=== PATIENT | female | born 2000 | race Caucasian/White ===

== ENCOUNTER 2022-10-14 20:38 | Day surgery (SDC) | payer BC, OTHER ==
[~2022-10-14] VITALS: Ht 168 cm; Wt 76.7 kg
[2022-10-14] MEDS ORDERED: SUCR1TAB (20:56)
[2022-10-14 21:03] LABS: BILIRUBIN,URINE NEGATIVE (NEGATIVE); CLARITY,URINE CLEAR; COLOR,URINE YELLOW; GLUCOSE, URINE (UA) NEGATIVE (NEGATIVE); KETONES,URINE NEGATIVE (NEGATIVE); LEUKOCYTE ESTERASE ,URINE 1+ (NEGATIVE); NITRITE,URINE NEGATIVE (NEGATIVE); PROTEIN,URINE NEGATIVE (NEGATIVE)
[2022-10-14 21:10] LABS: BACTERIA,URINE FEW /HPF; RBC,URINE 0-2 /HPF
[2022-10-14 21:26] LABS: BASOPHILS # (AUTO) 0.1 10^3/uL (0.0-0.1); BASOPHILS % (AUTO) 0 % (0-10); EOSINOPHILS # (AUTO) 0.2 10^3/uL (0.0-0.3); EOSINOPHILS % (AUTO) 1 % (0-10); HEMATOCRIT 40 % (35-52); HEMOGLOBIN 13.4 g/dL (11.5-16.0); LYMPHOCYTES % (AUTO) 23 % (12-44); MEAN CORPUSCULAR HEMOGLOBIN 28 pg (25-34); MEAN CORPUSCULAR HGB CONC 33 g/dL (32-36); MEAN CORPUSCULAR VOLUME 84 fL (80-99); MEAN PLATELET VOLUME 10.3 fL (9.0-12.2); MONOCYTES # (AUTO) 0.9 10^3/uL (0.0-1.0); MONOCYTES % (AUTO) 7 % (0-12); NEUTROPHILS # (AUTO) 8.8 10^3/uL (1.8-7.8); NEUTROPHILS % (AUTO) 68 % (42-75); PLATELET COUNT 265 10^3/uL (130-400); WHITE BLOOD COUNT 12.8 10^3/uL (4.3-11.0)
--- NOTE | 2022-10-14 21:34 | ED Abdominal Pain ---
General Chief Complaint: Abdominal/GI Problems Stated Complaint: ABDOMINAL PAIN Nursing Triage Note: worsening right lower quadrent pain since noon Source of Information: Patient Exam Limitations: No Limitations (VITOR VALDEZ APRN) History of Present Illness Date Seen by Provider: Oct 14, 2022 Time Seen by Provider: 22:20 Initial Comments Patient is a 22-year-old female who presents to the emergency department with acute onset of right lower quadrant pain at approximately 1 PM this afternoon. Denies any increased nausea above her baseline. Also denies any diarrhea. No fever. No abdominal trauma in the recent past. Patient states the car ride over made the pain worse when she hit bumps. No history of abdominal surgery. LMP was approximately 1 month ago. (VITOR VALDEZ APRN) Allergies and Home Medications Allergies Coded Allergies: ibuprofen (Verified Allergy, Unknown, 10/14/22) Patient Home Medication List Home Medication List Reviewed: Yes (VITOR VALDEZ APRN) Sucralfate (Sucralfate) 1 Gram Tablet, (Reported) Entered as Reported by: MICHAEL CROFT on 10/14/222055 Last Action: New Order Review of Systems Review of Systems Constitutional: no symptoms reported EENTM: No Symptoms Reported Respiratory: No Symptoms Reported Cardiovascular: No Symptoms Reported Gastrointestinal: No Symptoms Reported Genitourinary: No Symptoms Reported Musculoskeletal: no symptoms reported Skin: no symptoms reported Psychiatric/Neurological: No Symptoms Reported Endocrine: No Symptoms Reported Hematologic/Lymphatic: No Symptoms Reported (VITOR VALDEZ APRN) Past Azueetp-Wjgnqn-Shgigu Hx Patient Social History Tobacco Use?: Yes Substance use?: No Alcohol Use?: Yes Pt feels they are or have been: No (VITOR VALDEZ APRN) Immunizations Up To Date First/Initial COVID19 Vaccinat: x2 (VITOR VALDEZ APRN) Past Medical History Surgery/Hospitalization HX: fibromyalgia, gerd, partial garstic paralysis Last Menstrual Period: Sep 14, 2022 (VITOR VALDEZ APRN) Physical Exam Vital Signs Vital Signs - First Documented 10/14/22 20:50 Temp 36.9 Pulse 123 Resp 20 B/P (MAP) 135/86 (102) Pulse Ox 100 O2 Delivery Room Air (SIN VALLES MD) Vital Signs Capillary Refill : Less Than 3 Seconds (VALDEZ,VITOR CHECK OUT CLERK) Height/Weight/BMI Height: '" Weight: lbs. oz. kg; 27.00 BMI Method: General Appearance: WD/WN, no apparent distress HEENT: PERRL/EOMI, normal ENT inspection, TMs normal, pharynx normal Neck: non-tender, full range of motion, supple, normal inspection Respiratory: chest non-tender, lungs clear, normal breath sounds, no respiratory distress, no accessory muscle use Cardiovascular: regular rate, rhythm Gastrointestinal: normal bowel sounds, soft, no organomegaly, no pulsatile mass, tenderness Extremities: normal range of motion, non-tender, normal inspection, no pedal edema, no calf tenderness Neurologic/Psychiatric: no motor/sensory deficits, alert, normal mood/affect, oriented x 3 Skin: normal color, warm/dry (VITOR VALDEZ APRN) Progress/Results/Core Measures Results/Orders Lab Results Laboratory Tests Test 10/14/22 20:57 10/14/22 21:18 Range/Units Urine Color YELLOW Urine Clarity CLEAR Urine pH 6.0 5-9 Urine Specific [place] 1.025 H 1.016-1.022 Urine Protein NEGATIVE NEGATIVE Urine Glucose (UA) NEGATIVE NEGATIVE Urine Ketones NEGATIVE NEGATIVE Urine Nitrite NEGATIVE NEGATIVE Urine Bilirubin NEGATIVE NEGATIVE Urine Urobilinogen 0.2 < = 1.0 MG/DL Urine Leukocyte Esterase 1+ H NEGATIVE Urine RBC (Auto) NEGATIVE NEGATIVE Urine RBC 0-2 /HPF Urine WBC 2-5 /HPF Urine Squamous Epithelial Cells 2-5 /HPF Urine Crystals NONE /LPF Urine Bacteria FEW H /HPF Urine Casts NONE /LPF Urine Mucus NEGATIVE /LPF Urine Culture Indicated YES White Blood Count 12.8 H 4.3-11.0 10^3/uL Red Blood Count 4.83 3.80-5.11 10^6/uL Hemoglobin 13.4 11.5-16.0 g/dL Hematocrit 40 35-52 % Mean Corpuscular Volume 84 80-99 fL Mean Corpuscular Hemoglobin 28 25-34 pg Mean Corpuscular Hemoglobin Concent 33 32-36 g/dL Red Cell Distribution Width 12.6 10.0-14.5 % Platelet Count 265 130-400 10^3/uL Mean Platelet Volume 10.3 9.0-12.2 fL Immature Granulocyte % (Auto) 0 % Neutrophils (%) (Auto) 68 42-75 % Lymphocytes (%) (Auto) 23 12-44 % Monocytes (%) (Auto) 7 0-12 % Eosinophils (%) (Auto) 1 0-10 % Basophils (%) (Auto) 0 0-10 % Neutrophils # (Auto) 8.8 H 1.8-7.8 10^3/uL Lymphocytes # (Auto) 3.0 1.0-4.0 10^3/uL Monocytes # (Auto) 0.9 0.0-1.0 10^3/uL Eosinophils # (Auto) 0.2 0.0-0.3 10^3/uL Basophils # (Auto) 0.1 0.0-0.1 10^3/uL Immature Granulocyte # (Auto) 0.0 0.0-0.1 10^3/uL Sodium Level 139 135-145 MMOL/L Potassium Level 3.4 L 3.6-5.0 MMOL/L Chloride Level 105 98-107 MMOL/L Carbon Dioxide Level 22 21-32 MMOL/L Anion Gap 12 5-14 MMOL/L Blood Urea Nitrogen 10 7-18 MG/DL Creatinine 0.81 0.60-1.30 MG/DL Estimat Glomerular Filtration Rate 106 BUN/Creatinine Ratio 12 Glucose Level 95 70-105 MG/DL Calcium Level 9.6 8.5-10.1 MG/DL Corrected Calcium 9.3 8.5-10.1 MG/DL Total Bilirubin 0.2 0.1-1.0 MG/DL Aspartate Amino Transf (AST/SGOT) 14 5-34 U/L Alanine Aminotransferase (ALT/SGPT) 13 0-55 U/L Alkaline Phosphatase 67 40-136 U/L Total Protein 7.5 6.4-8.2 GM/DL Albumin 4.4 3.2-4.5 GM/DL (SIN VALLES MD) My Orders Orders - SIN VALLES MD Ua Culture If Indicated (10/14/22 20:43) Urine Culture (10/14/22 20:57) (SIN VALLES MD) Medications Given in ED Current Medications Medications Dose Ordered Sig/Emily Route Start Time Stop Time Status Last Admin Dose Admin Iohexol 100 ml ONCE ONCE IV 10/14/22 21:45 10/14/22 21:46 DC 10/14/22 21:40 80 ML Ondansetron HCl 4 mg ONCE ONCE IVP 10/14/22 22:15 10/14/22 22:16 DC 10/14/22 22:22 4 MG Piperacillin Sod/ Tazobactam Sod 4.5 gm/Sodium Chloride 100 ml @ 200 mls/hr ONCE ONCE IV 10/14/22 22:15 10/14/22 22:44 DC 10/14/22 23:38 200 MLS/HR Sodium Chloride 100 ml ONCE ONCE IV 10/14/22 21:45 10/14/22 21:46 DC 10/14/22 21:40 100 ML (SIN VALLES MD) Vital Signs/I&O 10/14/22 20:50 Temp 36.9 Pulse 123 Resp 20 B/P (MAP) 135/86 (102) Pulse Ox 100 O2 Delivery Room Air (SIN VALLES MD) Blood Pressure Mean: 102 Progress Progress Note : Progress Note Patient is nontoxic and well-hydrated on exam. No adventitious lung sounds or increased work of breathing noted. Abdominal exam notable for right lower quadrant tenderness to palpation. Laboratory evaluation notable for some mild leukocytosis. CT of the abdomen pelvis reveals possible early appendicitis with some mild periappendiceal inflammatory changes. Patient's exam is very consistent with acute appendicitis. I called Dr. Cortez with general surgery who will admit the patient for planned surgical intervention tomorrow. He requested the patient be given Zosyn and made n.p.o. and admitted to the hospital under his service. Patient was updated on plan of care. She verbalized understanding. (VITOR VALDEZ APRN) Departure Impression Primary Impression: Acute appendicitis Qualified Codes: K35.80 - Unspecified acute appendicitis Disposition: ADMITTED INPATIENT Condition: Stable Admissions Decision to Admit Reason: Admit from ER (General) Decision to Admit/Date: Oct 14, 2022 Time/Decision to Admit Time: 22:10 (VITOR VALDEZ APRN) ATTENDING PHYSICIAN NOTE: I was physically present as attending physician in the emergency department during the care of this patient, but I was not directly involved in the decision making or delivery of care for this patient. (SIN VALLES MD) VITOR VALDEZ APRN Oct 14, 2022 21:34 SIN VALLES MD Oct 15, 2022 07:35
[2022-10-14] MEDS ORDERED: NS 100 ML (IVPB) BAG IV ONE (21:45)
[2022-10-14] MEDS ORDERED: HOLD METFORMIN - RECEIVED CONTRAST 20 ML VIAL IV SCH (21:45)
[2022-10-14] MEDS ORDERED: IOHEXOL 350 MG/ML 100 ML (OMNIPAQUE 350) VIAL IV ONE (21:45)
[2022-10-14 21:46] LABS: ALBUMIN 4.4 GM/DL (3.2-4.5); BILIRUBIN,TOTAL 0.2 MG/DL (0.1-1.0); CALCIUM 9.6 MG/DL (8.5-10.1); CREATININE SERUM 0.81 MG/DL (0.60-1.30); POTASSIUM 3.4 MMOL/L (3.6-5.0); TOTAL PROTEIN 7.5 GM/DL (6.4-8.2)
[2022-10-14] MEDS ORDERED: morphine INJ 10 MG/ML 1ML (SYR OR VIAL) IVP STA (21:57)
--- NOTE | 2022-10-14 22:02 | Diagnostic Imaging Report ---
PROCEDURE: CT abdomen and pelvis with contrast. TECHNIQUE: Multiple contiguous axial images were obtained through the abdomen and pelvis after administration of intravenous contrast. Auto Exposure Controls were utilized during the CT exam to meet ALARA standards for radiation dose reduction. All CT scans use one or more of the following dose optimizing techniques: automated exposure control, MA and/or KvP adjustment based on patient size and exam type or iterative reconstruction. INDICATION: Right lower quadrant pain. FINDINGS: The heart size is normal. The lung bases are clear. The liver is normal in size and without focal lesions. Gallbladder is unremarkable. There is no biliary ductal dilatation. Spleen is normal. Pancreas and adrenal glands are unremarkable. Kidneys are normal in appearance. The aorta is nonaneurysmal. Bowel gas pattern is nonspecific. There is no free air. There is no ascites. The appendix is prominent up to approximately 1 cm. There are some questionable periappendiceal inflammatory change. There is a cyst in the left adnexa measuring up to 6 cm. Uterus is normal. Bladder is normal. The osseous structures are unremarkable. IMPRESSION: 1. Prominence of the appendix up to 1 cm in diameter. There is some questionable periappendiceal inflammatory change. Very early appendicitis cannot be excluded. Recommend clinical correlation. 2. 6 cm left ovarian cyst. 3. No other acute abnormality in the abdomen or pelvis. Dictated by: Dictated on workstation # [id number]
[2022-10-14] MEDS ORDERED: PIPERACILLIN SODIUM/TAZOBACTAM 4.5 GM in NS (IVPB) 100 ML IV ONE (22:15)
[2022-10-14] MEDS ORDERED: ONDANSETRON 4 MG/2 ML (SDV) Z0FRAN IVP ONE (22:15)
[2022-10-14] MEDS ORDERED: NS IV 1000 ML 1,000 ML ONE (23:26)
[2022-10-15] VITALS (11 sets, daily range): BP systolic 108–137; BP diastolic 54–98
[2022-10-15] MEDS ORDERED: NS IV 1000 ML 1,000 ML IV SCH (00:15)
[2022-10-15] MEDS ORDERED: morphine INJ 4 MG/ML 1 ML (VIAL/SYRINGE) IV PRN (00:15)
[2022-10-15] MEDS ORDERED: PIPERACILLIN SODIUM/TAZOBACTAM 4.5 GM in NS (IVPB) 100 ML IV SCH (06:00)
[2022-10-15] MEDS ORDERED: FLU QUADRIvalent (6 months+) 60 mcg/0.5 ml 2022-23 (Fluzone) IM ONE (07:30)
[2022-10-15] MEDS: ONDANSETRON 4 MG/2 ML (SDV) Z0FRAN IV PRN ×2 (08:52→12:44)
--- NOTE | 2022-10-15 09:33 | Consultation - Surgery ---
AJIT BARAHONA 10/15/22 0933: History of Present Illness History of Present Illness Patient Consulted On(janice/time) 10/15/22 09:25 Date Seen by Provider: Oct 15, 2022 Time Seen by Provider: 09:06 History of Present Illness 22yo F with h/o miserable malalignment syndrome, partial gastric paralysis, fibromyaglia, and asthma c/o constant, 10, RLQ abd pain with associated nausea that started around noon yesterday. Pt states that the pain feels like it's "ripping" and initially started in the suprapubic/periumbilical region and migrated to the RLQ. Pt notes that pain was worse with sudden movements and nothing made it better. Pt states that she took Mylanta (~20mL) last night but had no relief, prompting her to come to the ED. Pt was found to have a mild leukocytosis in the ED but was afebrile. CT ABD/PELVIS on 10/14 that showed possible early appendicitis with some mild periappendeceal inflammatory changes. Pt was admitted for acute appendicitis. In room, pt is laying comfortably in bed. Pt states that her pain is currently a 7/10 and feels like its being well controlled on her pain medications. Pt's nausea has resolved. Pt notes that her LMP was last month and should be getting her period soon but denies the pain being similar to her period pains. Pt has not had a BM but has voided without issue. Pt denies nausea, vomiting, diarrhea, CP, SOB, cough, and lightheadedness. Allergies and Home Medications Allergies Coded Allergies: ibuprofen (Verified Allergy, Unknown, 10/14/22) Patient Home Medication List Home Medication List Reviewed: Yes Sucralfate (Sucralfate) 1 Gram Tablet, (Reported) Entered as Reported by: MICHAEL CROFT on 10/14/222055 Last Action: New Order Past Wjytwiz-Rnompb-Deksoe Hx Patient Social History Smoking Status: Current Everyday Smoker Type Used: Electronic/Vapor Recent Hopitalizations: No Alcohol Use?: Yes Have you traveled recently?: No Surgeries History of Surgeries: No Respiratory History of Respiratory Disorde: Yes Respiratory Disorders: Asthma Cardiovascular History of Cardiac Disorders: No Neurological History of Neurological Disord: Yes Neurological Disorders: Headaches /Migraines Genitourinary History of Genitourinary Disor: No Gastrointestinal History of Gastrointestinal Di: Yes (partial gastric paralysis ) Musculoskeletal History of Musculoskeletal Dis: Yes (miserable malalignment syndrome) Musculoskeletal Disorders: Fibromyalgia Endocrine History of Endocrine Disorders: No HEENT History of HEENT Disorders: No Loss of Vision: Denies Hearing Impairment: Denies Cancer History of Cancer: No Psychosocial Behavioral Health Disorders: Anxiety Integumentary History of Skin or Integumenta: No Family Medical History Significant Family History: No Pertinent Family Hx (pt is adopted and does not know family medical history ) Review of Systems-General Constitutional: No chills, No diaphoresis, No fever EENTM: No ear discharge, No ear pain Respiratory: No cough, No dyspnea on exertion, No short of breath Cardiovascular: No chest pain, No edema Gastrointestinal: abdominal pain (RLQ); No constipation, No diarrhea, No hematemesis, No melena, No nausea, No vomiting Genitourinary: No discharge, No dysuria Musculoskeletal: No gout, No joint swelling; other (h/o fibromyaglia) Skin: No change in color, No change in hair/nails Psychiatric/Neurological: Denies Headache, Denies Numbness Physical Exam-General Problems Physical Exam Vital Signs Vital Signs - First Documented 10/14/22 20:50 Temp 36.9 Pulse 123 Resp 20 B/P (MAP) 135/86 (102) Pulse Ox 100 O2 Delivery Room Air Capillary Refill : Less Than 3 Seconds General Appearance: WD/WN, no apparent distress HEENT: PERRL/EOMI Respiratory: lungs clear, normal breath sounds, no respiratory distress, no accessory muscle use Cardiovascular: regular rate, rhythm, no murmur Peripheral Pulses: 2+ Dorsalis Pedis (R), 2+ Left Dors-Pedis (L) Gastrointestinal: soft, tenderness (RLQ and periumbilical ) Extremities: no pedal edema, no calf tenderness Neurologic/Psychiatric: alert, oriented x 3 Skin: normal color, warm/dry Data Review Labs Laboratory Tests 10/14/22 20:57: Urine Color YELLOW, Urine Clarity CLEAR, Urine pH 6.0, Urine Specific [place] 1.025H, Urine Protein NEGATIVE, Urine Glucose (UA) NEGATIVE, Urine Ketones NEGAT EMILIANA, Urine Nitrite NEGATIVE, Urine Bilirubin NEGATIVE, Urine Urobilinogen 0.2, Urine Leukocyte Esterase 1+H, Urine RBC (Auto) NEGATIVE, Urine RBC 0-2, Urine WBC 2-5, Urine Squamous Epithelial Cells 2-5, Urine Crystals NONE, Urine Bacteria FEWH, Urine Casts NONE, Urine Mucus NEGATIVE, Urine Culture Indicated YES 10/14/22 21:18: White Blood Count 12.8H, Red Blood Count 4.83, Hemoglobin 13.4, Hematocrit 40, Mean Corpuscular Volume 84, Mean Corpuscular Hemoglobin 28, Mean Corpuscular Hemoglobin Concent 33, Red Cell Distribution Width 12.6, Platelet Count 265, Mean Platelet Volume 10.3, Immature Granulocyte % (Auto) 0, Neutrophils (%) (Auto) 68, Lymphocytes (%) (Auto) 23, Monocytes (%) (Auto) 7, Eosinophils (%) (Auto) 1, Basophils (%) (Auto) 0, Neutrophils # (Auto) 8.8H, Lymphocytes # (Auto) 3.0, Monocytes # (Auto) 0.9, Eosinophils # (Auto) 0.2, Basophils # (Auto) 0.1, Immature Granulocyte # (Auto) 0.0, Sodium Level 139, Potassium Level 3.4L, Chloride Level 105, Carbon Dioxide Level 22, Anion Gap 12, Blood Urea Nitrogen 10, Creatinine 0.81, Estimat Glomerular Filtration Rate 106, BUN/Creatinine Ratio 12, Glucose Level 95, Calcium Level 9.6, Corrected Calcium 9.3, Total Bilirubin 0.2, Aspartate Amino Transf (AST/SGOT) 14, Alanine Aminotransferase (ALT/SGPT) 13, Alkaline Phosphatase 67, Total Protein 7.5, Albumin 4.4 Assessment/Plan Assessment/Plan Assessment/Plan 1. Acute appendicitis 2. RLQ pain 3. Nausea- resolved Pt is scheduled for appendectomy today SHAMAR MILLARD DO 10/15/22 0950: History of Present Illness History of Present Illness Time Seen by Provider: 09:32 History of Present Illness Surgery asked to consult regarding RLQ pain, probable appendicitis. HPI per ED: Patient is a 22-year-old female who presents to the emergency department with acute onset of right lower quadrant pain at approximately 1 PM this afternoon. Denies any increased nausea above her baseline. Also denies any diarrhea. No fever. No abdominal trauma in the recent past. Patient states the car ride over made the pain worse when she hit bumps. No history of abdominal surgery. LMP was approximately 1 month ago. When I spoke to pt she was still having some minimal RLQ pain, but not like it was. States she is ready for surgery. Allergies and Home Medications Allergies Coded Allergies: ibuprofen (Verified Allergy, Unknown, 10/14/22) Patient Home Medication List Home Medication List Reviewed: Yes Sucralfate (Sucralfate) 1 Gram Tablet, (Reported) Entered as Reported by: MICHAEL CROFT on 10/14/222055 Last Action: New Order Past Edrznrc-Jxrjaa-Oadlga Hx Patient Social History Smoking Status: Current Everyday Smoker Type Used: Electronic/Vapor Recent Hopitalizations: No Surgeries History of Surgeries: No Respiratory History of Respiratory Disorde: Yes Respiratory Disorders: Asthma Cardiovascular History of Cardiac Disorders: No Neurological History of Neurological Disord: Yes Neurological Disorders: Headaches /Migraines Genitourinary History of Genitourinary Disor: No Gastrointestinal History of Gastrointestinal Di: Yes (partial gastric paralysis ) Musculoskeletal History of Musculoskeletal Dis: Yes (miserable malalignment syndrome) Musculoskeletal Disorders: Fibromyalgia Endocrine History of Endocrine Disorders: No HEENT History of HEENT Disorders: No Loss of Vision: Denies Hearing Impairment: Denies Cancer History of Cancer: No Psychosocial History of Psychiatric Problem: Yes Behavioral Health Disorders: Anxiety Integumentary History of Skin or Integumenta: No Family Medical History Significant Family History: Other Conditions/Hx (adopted does not know family hx) Review of Systems-General Constitutional: No chills, No diaphoresis, No fever EENTM: No ear discharge, No ear pain Respiratory: No cough, No dyspnea on exertion, No short of breath Cardiovascular: No chest pain, No edema Gastrointestinal: abdominal pain (RLQ); No constipation, No diarrhea, No hematemesis, No melena, No nausea, No vomiting Genitourinary: No discharge, No dysuria Musculoskeletal: No gout, No joint swelling; other (h/o fibromyaglia) Skin: No change in color, No change in hair/nails Psychiatric/Neurological: Denies Anxiety, Denies Depressed, Denies Headache, Denies Numbness Physical Exam-General Problems Physical Exam General Appearance: WD/WN, no apparent distress Eyes: Bilateral Eye PERRL, Bilateral Eye EOMI HEENT: pharynx normal; No scleral icterus (R), No scleral icterus (L) Neck: non-tender, supple Respiratory: lungs clear, normal breath sounds, no respiratory distress, no accessory muscle use Cardiovascular: regular rate, rhythm, no murmur Gastrointestinal: soft, no organomegaly, tenderness (RLQ and periumbilical ), hernia (very small umbilical hernia) Back: no CVA tenderness, no vertebral tenderness Extremities: no pedal edema, no calf tenderness Neurologic/Psychiatric: implementation director II-XII nml as tested, alert, oriented x 3 Skin: normal color, warm/dry Lymphatic: no adenopathy (neck, axilla or groin) Data Review Radiology Date of Exam:10/14/22 CT ABDOMEN/PELVIS W PROCEDURE: CT abdomen and pelvis with contrast. TECHNIQUE: Multiple contiguous axial images were obtained through the abdomen and pelvis after administration of intravenous contrast. Auto Exposure Controls were utilized during the CT exam to meet ALARA standards for radiation dose reduction. All CT scans use one or more of the following dose optimizing techniques: automated exposure control, MA and/or KvP adjustment based on patient size and exam type or iterative reconstruction. INDICATION: Right lower quadrant pain. FINDINGS: The heart size is normal. The lung bases are clear. The liver is normal in size and without focal lesions. Gallbladder is unremarkable. There is no biliary ductal dilatation. Spleen is normal. Pancreas and adrenal glands are unremarkable. Kidneys are normal in appearance. The aorta is nonaneurysmal. Bowel gas pattern is nonspecific. There is no free air. There is no ascites. The appendix is prominent up to approximately 1 cm. There are some questionable periappendiceal inflammatory change. There is a cyst in the left adnexa measuring up to 6 cm. Uterus is normal. Bladder is normal. The osseous structures are unremarkable. IMPRESSION: 1. Prominence of the appendix up to 1 cm in diameter. There is some questionable periappendiceal inflammatory change. Very early appendicitis cannot be excluded. Recommend clinical correlation. 2. 6 cm left ovarian cyst. 3. No other acute abnormality in the abdomen or pelvis. Dictated on workstation # [id number] Dict: 10/14/222149 Trans: 10/14/222200 [facility] [id number] Interpreted by: BUCK MILLARD MD Assessment/Plan Assessment/Plan Assessment/Plan 1. Acute appendicitis 2. Nausea- resolved I reviewed the CT myself and spoke with ED provider regarding the case. I saw a distended appendix and minimal inflammation around it, I agree this could be an early appendicitis. I talked to pt about surgery; risks and complications not limited to pain, bleeding, infection, scar, damage to bowel and need for further procedure. All questions answered to her satisfaction. If the appendix is not too bad she will most likely go home today and will not need ABX. Supervisory-Addendum Brief Verification & Attestation Participated in pt care: history, MDM, physical Personally performed: exam, history, MDM, supervision of care Care discussed with: Medical Student Procedures: n/a Verification and Attestation of Medical Student E/M Service A medical student performed and documented this service. I then reviewed and verified all information documented by the medical student and made modifications to such information, when appropriate. I personally performed a physical exam, medical decision making and then discussed any differences between the notes and made revisions as necessary to create one note. Shamar Millard , 10/15/22 , 09:55 AJIT BARAHONA Oct 15, 2022 09:33 SHAMAR MILLARD DO Oct 15, 2022 09:50
[2022-10-15] MEDS ORDERED: MIDAZOLAM 2 MG/2 ML (VERSED) VIAL ONE (09:36)
[2022-10-15] MEDS ORDERED: ROCURONIUM 10 MG/ML 5 ML SYRINGE IV ONE (09:36)
[2022-10-15] MEDS ORDERED: proPOfol 200 MG/20 ML (DIPRIVAN) VIAL IV ONE (09:36)
[2022-10-15] MEDS ORDERED: ONDANSETRON 4 MG/2 ML (SDV) Z0FRAN ONE (09:36)
[2022-10-15] MEDS ORDERED: LIDOCAINE PF 2% 5 ML (XYLOCAINE) VIAL ONE (09:36)
[2022-10-15] MEDS ORDERED: fentaNYL INJ 100 MCG/2 ML AMP ONE (09:36)
[2022-10-15] MEDS ORDERED: BUP/EPI 0.25% 1:200,000 (MARCAINE) 30 ML VIAL ONE (09:45)
[2022-10-15] MEDS ORDERED: LACTATED RINGERS 1,000 ML IV PRN ×2 (09:45→11:00)
[2022-10-15] MEDS ORDERED: NEOSTIGMINE 3 MG/3 ML VIAL ONE (10:52)
[2022-10-15] MEDS ORDERED: GLYCOPYRROLATE 0.2 MG/ML (ROBINUL) 2 ML VIAL ONE (10:52)
--- NOTE | 2022-10-15 11:02 | Progress Note-Post Operative ---
Post-Operative Progess Note Surgeon (s)/Community Pharmacist (s) Surgeon SHAMAR MILLARD DO Community Pharmacist: AUNG Krishnan Pre-Operative Diagnosis acute appy Post-Operative Diagnosis same plus large left ovarian cyst Procedure & Operative Findings Date of Procedure 10/15/22 Procedure Performed/Findings PROCEDURE: Laparoscopic appendectomy. COMPLICATIONS: None. INDICATIONS: The patient is a 22 year old female who has been having right lower quadrant abdominal pain. Patient's exam consistent with appendicitis. I discussed risk and benefits of laparoscopic appendectomy and all indicated procedures with the possibility being a normal appendix. The patient understands the risks and benefits and wishes to proceed. Consent was signed on the chart. DESCRIPTION OF PROCEDURE: The patient was taken to the operating suite, prepped and draped in a sterile fashion. Timeout was performed. Local anesthetic was infiltrated just below the umbilicus and 11- blade scalpel was used to make a skin incision. Cautery was used to dissect down to the fascia and scored. Kochers were used to grasp and elevate it and the abdomen was then entered. A 0 Vicryl was placed in a figure-of- eight fashion for closure at the end of the case. The balloon trocar was inserted into the abdomen and pneumoperitoneum was achieved. Under direct visualization of the laparoscope, a 5 mm trocar was placed in the suprapubic region and a 5 mm trocar was placed in the left lower quadrant. Appendix was located,enlarged in the middle and mildly erythematous. The mesoappendix was dissected through in a stepwise fashion with the Ligasure down to the base of the appendix. Once at the base an Endo-JUAN 2.5 stapler was then fired across the base of the appendix. It was then placed in an Endobag and removed through the 12 mm trocar site. The abdomen was then irrigated and yung ctioned. Noted a large left ovarian cyst and picture taken; but, no other pathology. The abdomen was then desufflated and the trocars were removed. The 0 Vicryl placed at the beginning of the case was then tied closing the 12 mm fascial defect. The skin was then closed using 4-0 Monocryl in a subcuticular fashion. The abdomen was then washed and dried and Skin Affix was placed over the incisions. The patient tolerated the procedure well without any complications and was taken to the recovery room in stable condition. Anesthesia Type GET Estimated Blood Loss Estimated blood loss (mL): scant Specimens/Packing Specimens Removed appendix SHAMAR MILLARD DO Oct 15, 2022 11:02
[2022-10-15] MEDS ORDERED: ACHD5005 PO (11:03)
--- NOTE | 2022-10-15 11:05 | Discharge Inst-Surgical ---
Discharge Inst-Surgical Depart Medication/Instructions New, Converted or Re-Newed RX: Transmitted to Pharmacy Patient Instructions Follow up Appt: Make appointment for 1 week. [phone] Instructions: No lifting greater than 20 pounds. No strenuous activity. May shower in 24 hours, no tub bath or soaking. Use incentive spirometer at home as directed. No Smoking Skin/Wound Care: May remove bandages in am. You need to leave the Dermabond on incision it will fall off on it's own. Symptoms to Report: Appetite Changes, Extremity Discoloration, Numbness/Tingling, Swelling Increased, Bleeding Excessive, Eyesight Changes, Pain Increased, Urine Color Change, Constipation(Persistent), Fever over 101 degree F, Pain/Pressure in chest, Urinating Difficulty, Cough Up/Vomit Blood, Heart Beat Irreg/Pounding, Pain/Pressure in jaw, Cramps in feet or legs, Lightheadedness, Pain/Pressure in shoulder, Diarrhea(Persistent), Memory Changes Suddenly, Questions/Concerns, Weight gain consecutive days, Dizziness/Fainting, Nausea/Vomiting, Shortness of Breath, Weight gain over 2 pounds If questions or concerns contact your physician Or seek help at emergency department. Activity Activity as Tolerated: Yes Activity Instructions: Avoid Stress to Incision Driving Instructions: No Driving/Refer to Dr. Mills Discharge Diet: No Restrictions Diet After 24 Hours: Clear Liquid if Nauseous If Any Problems/Questions/Issu: Contact Your Physician, Go to Emergency Room Skin/Wound Care Infection Signs and Symptoms: Increased Redness, Foul Odor of Wound, Increased Drainage, Skin Itchy or Has a Rash, Increased Swelling, Temperature Above 101 F Wound Care Comment: Heating pad to shoulder or neck tonight for pain Bathing Instructions: Shower Stitches/Percy/Dermabond Dis: Aimeeond SHAMAR MILLARD DO Oct 15, 2022 11:05
--- NOTE | 2022-10-15 11:24 | Anesthesia-General Post-Op ---
General Patient Condition Mental Status/LOC: Same as Preop Cardiovascular: Satisfactory Nausea/Vomiting: Absent Respiratory: Satisfactory Pain: Controlled Complications: Absent Post Op Complications Complications None Follow Up Care/Instructions Patient Instructions None needed. Anesthesia/Patient Condition Patient Condition Patient is doing well, no complaints, stable vital signs, no apparent adverse anesthesia problems. No complications reported per nursing. MADELINE ARIAS CRNA Oct 15, 2022 11:24
[2022-10-15] MEDS ORDERED: morphine INJ 10 MG/ML 1ML (SYR OR VIAL) IVP ONE (11:30)
[2022-10-15] MEDS: ONDANSETRON 4 MG/2 ML (SDV) Z0FRAN IVP PRN ×2 (11:41→13:40)
[2022-10-15] MEDS ORDERED: SEVOFLURANE (ULTANE) 15 ML INHAL SOLN ONE (14:56)
[2022-10-15] MEDS ORDERED: ONDA4TAB11 SL (14:58)
== END 2022-10-15 14:18 | disposition home or self-care (01) ==
LOC: ER 20:41 → UNDOADMIN 22:15 → 4TH 22:15 → EDLOC 22:15 → ER 22:27 → 4TH 22:27 → SDC 23:20 → 4TH 23:20 → UNDOADMOB 23:20 → 4TH 23:20 → UNDODISIN 10-15 14:18 → SDC 10-15 14:18 → UNDODISOB 10-15 14:18
PROVIDERS: ATTEND Surgery
DX: K35.80 Unspecified acute appendicitis (principal); N83.202 Unspecified ovarian cyst, left side; Z23 Encounter for immunization
CPT/HCPCS: 36415; 74177; 80053; 81000; 84703; 85025; 87088; 88304; 90686; 96374; 96375

== ENCOUNTER → 2022-11-18 | Outpatient (CLI) | payer BC ==
[~2022-11-18] MED LIST: ACHD5005 PO; ONDA4TAB11 SL; SUCR1TAB
--- NOTE | 2022-11-18 11:49 | Diagnostic Imaging Report ---
PROCEDURE: Pelvic comp/transvaginal sonogram. TECHNIQUE: Complete transabdominal and transvaginal pelvic ultrasound was performed. In addition, limited pelvic Doppler was performed. INDICATION: Ovarian cyst noted on recent CT. Correlation is made with CT study from 10/14/2022. The uterus is anteverted measuring 6.6 x 2.7 x 3.6 cm. Endometrium is 4 mm in thickness. No myometrial mass is detected. Right ovary measures 3.2 x 2.1 x 3.2 cm, left ovary measures 2.8 x 2.9 x 2.8 cm. Both ovaries contain small follicles. There is blood flow to both ovaries. Previously noted left adnexal cyst noted on recent CT is no longer visualized. There is no free fluid. IMPRESSION: Resolution of the cystic lesion left adnexa when compared with CT study from one month earlier. No abnormalities identified on today's exam. Dictated by: Dictated on workstation # [id number]
== END ==
LOC: RAD 09:42
PROVIDERS: ATTEND Obstetrics & Gynecology
DX: N83.202 Unspecified ovarian cyst, left side (principal)
CPT/HCPCS: 76830; 76856

== ENCOUNTER → 2023-03-21 | Outpatient (CLI) | payer BC ==
--- NOTE | 2023-03-21 17:54 | Diagnostic Imaging Report ---
CLINICAL HISTORY: Right middle finger pain. Smashed in a car door. COMPARISON: None. TECHNIQUE: Three views of the right hand. FINDINGS: There is no acute fracture or dislocation of the right hand. Alignment is anatomic. The imaged joint spaces are preserved. No focal osseous lesions. IMPRESSION: 1. No acute fracture or dislocation in the right hand and in particular the right middle finger. Dictated by: Dictated on workstation # [id number]
== END ==
LOC: RAD 16:24
PROVIDERS: ATTEND Nurse Practitioner Family
DX: S69.90XA Unspecified injury of unspecified wrist, hand and finger(s), initial encounter (principal)
CPT/HCPCS: 73140